=== PATIENT | male | born 1980 | race Caucasian/White ===

== ENCOUNTER 2019-02-08 19:46 | Emergency (ER) | payer OTHER ==
[~2019-02-08] VITALS: Ht 175.3 cm; Wt 94.8 kg
[~2019-02-08 19:46] MED LIST: CIPRO500 MG PO; URIN D.S. TABLE1 TAB PO
== END 2019-02-08 22:51 | disposition home or self-care (01) ==
LOC: ER 19:46
DX: S63.591A Other specified sprain of right wrist, initial encounter (principal); X50.0XXA Overexertion from strenuous movement or load, initial encounter; Y93.89 Activity, other specified; Y92.89 Other specified places as the place of occurrence of the external cause; Y99.8 Other external cause status

== ENCOUNTER 2019-07-18 19:52 | Emergency (ER) | payer OTHER ==
[~2019-07-18] VITALS: Ht 177.8 cm; Wt 83.5 kg
== END 2019-07-18 22:40 | disposition home or self-care (01) ==
LOC: ER 19:52
DX: G43.909 Migraine, unspecified, not intractable, without status migrainosus (principal)

== ENCOUNTER 2020-04-28 16:40 | Emergency (ER) | payer OTHER ==
[~2020-04-28] VITALS: Ht 175.3 cm; Wt 93.0 kg
== END 2020-04-28 22:33 | disposition home or self-care (01) ==
LOC: ER 16:40
DX: B34.9 Viral infection, unspecified (principal); Z20.828 Contact with and (suspected) exposure to other viral communicable diseases

== ENCOUNTER 2020-12-01 00:13 | Emergency (ER) | payer OTHER ==
[~2020-12-01] VITALS: Ht 175.3 cm; Wt 93.0 kg
[2020-12-01] MEDS ORDERED: MELATONIN10 M2 PO (04:52)
[2020-12-01] MEDS ORDERED: AZITHROMYCIN500 MG PO (04:52)
[2020-12-01] MEDS ORDERED: MUCINEX DM ER1 EAC1 PO (04:52)
[2020-12-01] MEDS ORDERED: IVERMECTIN3 MG PO (04:52)
[2020-12-01] MEDS ORDERED: VITAMIN C WIT1000 MG PO (04:52)
[2020-12-01] MEDS ORDERED: COLCHICINE0.6 M1 PO (04:52)
[2020-12-01] MEDS ORDERED: VITAMIN D3-ALO1 EACH PO (04:52)
[2020-12-12] MEDS ORDERED: ACETAMINOPHEN650 M2 (06:34)
== END 2020-12-01 06:18 | disposition home or self-care (01) ==
LOC: ER 00:13
DX: U07.1 COVID-19 (principal); B34.9 Viral infection, unspecified